=== PATIENT | female | born 2000 | race Caucasian/White ===

== ENCOUNTER 2021-10-12 23:24 | Outpatient (REF) | payer OTHER, SELFPAY ==
[2021-10-13 00:05] LABS: COVID-19 Test Negative (Negative)
== END 2021-10-12 23:25 | disposition home or self-care (01) ==
LOC: HO.LAB 23:24
PROVIDERS: Visit Provider Internal Medicine
DX: Z20.822 Contact with and (suspected) exposure to COVID-19 (principal)
CPT/HCPCS: 87635

== ENCOUNTER 2021-10-13 00:35 | Emergency (ER) | payer BC, SELFPAY ==
--- NOTE | ~2021-10-13 | XR_ITS ---
EXAMINATION: XR CHEST CLINICAL INFORMATION: Shortness of breath COMPARISON: 12/11/2017 TECHNIQUE: Frontal view of the chest was obtained. FINDINGS: Lung volumes are low. There is no focal consolidation, edema, or effusion. No pneumothorax. The cardiomediastinal silhouette is within normal limits. No acute osseous abnormality. XR/XR chest 1V IMPRESSION: No acute pulmonary finding.
[2021-10-13 00:44] VITALS: BP 123/86; PULSE 79; RESP 17; TEMP 36.8; O2SAT 98; BMI 30.9
--- NOTE | 2021-10-13 01:21 | ED.URI ---
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 Related Data Previous Rx's Medication Instructions Recorded levofloxacin 750 mg tablet 750 mg PO DAILY 7 Days #7 tab 10/13/21 Allergies Allergy/AdvReac Type Severity Reaction Status Date / Time acetaminophen [From TYLENOL] Allergy Intermediate RASH Unverified 04/17/20 19:29 Review of Systems Review of Systems: Yes all other systems are reviewed and are negative PMFSH Past Medical History Medical History Arnold-Chiari malformation, type I Social History Social History Advance Directives: No Patient : No Physical Exam Vital Signs: Vital Signs: Last Vital Signs Temp 98.2 F 10/13/21 00:44 Pulse 79 10/13/21 00:44 Resp 17 10/13/21 00:44 BP 123/86 10/13/21 00:44 Pulse Ox 98 10/13/21 00:44 BMI result Body Mass Index 30.9 Appearance: Alert. Oriented X3. No acute distress. Eyes: No pallor or icterus ENT: Pharynx normal. Oral Mucosa moist Neck: Normal inspection. Neck supple. CVS: Normal heart rate and rhythm. Pulses normal. Respiratory: No respiratory distress. Equal air entry bilateral, no wheezing/rales/rhonchi Abdomen: Soft and nontender. Bowel sounds are present, no mass palpable, no CVA tenderness Skin: Skin warm and dry. Normal skin color. Normal skin turgor. Extremities: No lower extremity edema. No calf tenderness Neuro: Oriented X 3. MDM - URI/Sore Throat MDM Narrative Medical decision making narrative: Patient's symptoms clinically likely early pneumonia chest x-ray showed slight haziness on the right lower lobe will discharge patient home on Levaquin low risk for PE Discharge Plan Discharge Clinical Impression: Pneumonia Patient Disposition: Home, Self-Care Instructions: Community Acquired Pneumonia (ED) Additional Instructions: you likely have early pneumonia on the right side Take antibiotics as prescribed Prescriptions: New levofloxacin 750 mg tablet 750 mg PO DAILY 7 Days Qty: 7 0RF
[2021-10-13] MEDS: levoFLOXacin 750 MG TABLET PO (01:43)
== END 2021-10-13 01:44 | disposition home or self-care (01) ==
PROVIDERS: Emergency Provider Internal Medicine
DX: J18.9 Pneumonia, unspecified organism (principal)
CPT/HCPCS: 71045; 99283

== ENCOUNTER 2022-01-26 00:48 | Outpatient (REF) | payer OTHER, SELFPAY ==
[2022-01-26 01:12] LABS: COVID-19 Test Negative (Negative)
== END 2022-01-26 00:49 | disposition home or self-care (01) ==
LOC: HO.LAB 00:48
PROVIDERS: Visit Provider Internal Medicine
DX: Z20.822 Contact with and (suspected) exposure to COVID-19 (principal)
CPT/HCPCS: 87635

== ENCOUNTER 2022-03-10 02:12 | Outpatient (REF) | payer OTHER, SELFPAY ==
[2022-03-10 02:37] LABS: COVID-19 Test Negative (Negative); IDNOW Serial# 16C4AD1C
== END 2022-03-10 02:13 | disposition home or self-care (01) ==
LOC: HO.LAB 02:12
PROVIDERS: Visit Provider Internal Medicine
DX: Z20.822 Contact with and (suspected) exposure to COVID-19 (principal)
CPT/HCPCS: 87635

== ENCOUNTER 2022-04-28 20:01 | Outpatient (REF) | payer OTHER, SELFPAY ==
[2022-04-28 20:43] LABS: COVID-19 Test Negative (Negative); IDNOW Serial# 55D5AD1C
== END 2022-04-28 20:02 | disposition home or self-care (01) ==
LOC: HO.LAB 20:01
PROVIDERS: Visit Provider Internal Medicine
DX: Z20.822 Contact with and (suspected) exposure to COVID-19 (principal)
CPT/HCPCS: 87635

== ENCOUNTER 2022-05-29 01:17 | Outpatient (REF) | payer OTHER, SELFPAY ==
[2022-05-29 01:34] LABS: COVID-19 Test Positive (Negative)
== END 2022-05-29 01:18 | disposition home or self-care (01) ==
LOC: HO.LAB 01:17
PROVIDERS: Visit Provider Internal Medicine
DX: Z20.822 Contact with and (suspected) exposure to COVID-19 (principal)
CPT/HCPCS: 87635

== ENCOUNTER 2022-07-17 12:43 | Emergency (ER) | payer BC, SELFPAY ==
[2022-07-17 12:48] VITALS: BP 132/97; PULSE 83; RESP 18; TEMP 36.7; O2SAT 98; BMI 27.3
--- NOTE | 2022-07-17 12:50 | ED_ITS ---
HPI - Allergic Reaction General Chief complaint: Allergic Reaction Stated complaint: allergic reaction Time Seen by Provider: 07/17/22 12:59 Source: patient Mode of arrival: ambulatory Limitations: no limitations History of Present Illness MD complaint: allergic reaction and hives Onset (ago): hour(s) (2 hours prior to arrive) Exposure: medication (Taking medication that has Tylenol properties in it) Symptoms: rash and itching Severity: mild Treatment prior to arrival: benadryl (50 mg) Previous Allergic Reaction History: prior ED visit(s) Related Data Previous Rx's Medication Instructions Recorded levofloxacin 750 mg tablet 750 mg PO DAILY 7 days #7 tabs 10/13/21 diphenhydramine HCl 25 mg capsule 50 mg PO TID PRN allergic reaction 07/17/22 (Benadryl) #20 caps epinephrine 0.3 mg/0.3 mL 0.3 mg (0.3 mL) IM Q10M PRN 07/17/22 injection, auto-injector anaphylaxis #2 ea famotidine 20 mg tablet (Pepcid) 20 mg PO BID rash #20 tabs 07/17/22 prednisone 20 mg tablet 40 mg PO DAILY rash 5 days #10 tabs 07/17/22 Allergies Allergy/AdvReac Type Severity Reaction Status Date / Time acetaminophen [From TYLENOL] Allergy Intermediate RASH Verified 07/17/22 12:47 Review of Systems Review of Systems: Constitutional : No Fever, No Chills , no body aches, no recent illness Head/Face: No facial swelling, No facial redness ENT/Mouth : No oral/throat swelling, No Hoarseness, No Swallowing Difficulty Eyes: No Eye Pain, No Swelling, No Redness Cardiovascular : No Chest Pain, No SOB, No palpitations Respiratory : No Cough, No Sputum, No Wheezing, No Smoke Exposure, No Dyspnea Gastrointestinal : No Nausea, No Vomiting, No Diarrhea, No abdominal Pain Genitourinary : No Dysuria, No Urinary Frequency, No Hematuria Musculoskeletal : No joint pain, No Myalgias, No Joint Swelling Skin : No Skin Lesions, positive rash Neuro : No Weakness, No Numbness, No Headache, No dizziness, No tingling Psych : No Anxiety/Panic, No Depression Heme/Lymph: No Bruising, No Lymphadenopathy Endocrine : No Polyuria, No Polydipsia Denies changes in lotions or detergents. + new medications Denies drainage from rash. Denies any recent sick contacts or recent travel. Yes all other systems are reviewed and are negative [facility] Past Medical History Attestation statement: The following information was validated with the patient. Source: old records reviewed and nursing notes reviewed Medical History Arnold-Chiari malformation, type I Social History Social History Advance Directives: No Advance Directives Information Provided: No Physical Exam ED Vital Signs: Vital Signs - 24 hr 07/17/22 12:48 Temperature 98.0 F Pulse Rate 83 Respiratory Rate 18 Blood Pressure 132/97 H Pulse Oximetry 98 Oxygen Delivery Method Room Air BMI result Body Mass Index 27.3 Vital signs have been reviewed and all within normal limits Appearance: Alert. Oriented X3. No acute distress. Head: Normal external exam. Normocephalic. No angioedema noted. Eyes: PERRLA. EOMI. Conjunctiva and sclera normal. Eyelids normal. ENT: Pharynx normal. Uvula midline. Moist mucous membranes. No trismus noted. No drooling noted. No muffled voice noted. Patient tolerated secretions well. Neck: Normal inspection. Neck supple. FROM. No adenopathy. No meningeal signs. CVS: Normal heart rate and rhythm. Heart sound normal. No murmurs noted. Pulses normal throughout. Respiratory: No respiratory distress. Painless inspiration. Breath sounds normal. No wheezes/rales/rhonchi noted. Chest nontender. No accessory muscle usage noted or decreased air movement noted. Abdomen: Soft and nontender. Nondistended. Back: Full range of motion noted. Skin: Skin warm and dry. Normal skin color. Normal skin turgor. Patient noted to have scattered hives to chest/arms and lower extremities. No additional rashes/lesions/lacerations noted. Extremities: Extremities exhibit normal range of motion. Extremities nontender. Neuro: Oriented X 3. No motor deficit. No sensory deficit. Reflexes normal. Normal steady gait. CN's II-XII intact bilaterally? Course Course Course Narrative: IMP/Plan: Allergic rxn. Not anaphylaxis. Not sepsis/ infectious etiology. Patient well appearing in no acute distress, breathing easily without throat symptoms. Speaking full sentences, and handling secretions without difficulty. There is no obvious threat to airway. Lungs are CTA in all contreras. No signs of angioedema, stridor, airway compromise, anaphylaxis or anaphylactic shock. Not c/w SSSS/ TEN/ Eryth multiforme/ [place]ons. Given HPI and PE -patient having a mild allergic reaction. She already took 50 mg of Benadryl prior to arrival. She does have some scattered hives throughout her body. Patient will be discharged with symptomatic treatment instructions return if any new or worsening symptoms follow up with primary care provider. Patient understands agrees with this plan. Discharge Plan Discharge Clinical Impression: Allergic reaction, Urticaria Patient Disposition: Home, Self-Care Instructions: General Allergic Reaction (ED) Prescriptions: New diphenhydramine HCl [Benadryl] 25 mg capsule 50 mg PO TID PRN (Reason: allergic reaction) Qty: 20 0RF famotidine [Pepcid] 20 mg tablet 20 mg PO BID Qty: 20 0RF prednisone 20 mg tablet 40 mg PO DAILY 5 Days Qty: 10 0RF epinephrine 0.3 mg/0.3 mL auto-injector 0.3 mg IM Q10M PRN (Reason: anaphylaxis) Qty: 2 0RF Rx Instructions: for 2 doses No Action levofloxacin 750 mg tablet 750 mg PO DAILY 7 Days Qty: 7 0RF Referrals: Smitha Lynch PA-C [Primary Care Provider] - 2 days Stand Alone Forms: Work/School Release
[2022-07-17] MEDS: predniSONE 20 MG TABLET 60 MG PO (13:14)
[2022-07-17] MEDS: Famotidine 20 MG TABLET PO (13:14)
== END 2022-07-17 13:20 | disposition home or self-care (01) ==
PROVIDERS: Emergency Provider Emergency Medicine; PCP Physician Assistant Medical
DX: L50.9 Urticaria, unspecified (principal); T78.40XA Allergy, unspecified, initial encounter; X58.XXXA Exposure to other specified factors, initial encounter
CPT/HCPCS: 99283

== ENCOUNTER 2022-07-20 01:57 | Emergency (ER) | payer BC, SELFPAY ==
[2022-07-20 02:05] VITALS: BP 134/88; PULSE 92; RESP 22; TEMP 36.5; O2SAT 98; BMI 25.0
[2022-07-20 02:40] LABS: Appearance Urine Clear; Color Urine Yellow; Glucose Urine UA Negative (Negative); Leukocyte Esterase Urine Negative (Negative); Nitrite Urine Negative (Negative); PH 5.5 (5.0-9.0); Specific Gravity - Urine 1.015 (1.005-1.025); Urine Blood Negative (Negative); Urine Ketones Negative (Negative); Urine Protein Negative (Neg-Trace)
[2022-07-20 02:44] LABS: UPreg QC Valid YES; Urine Pregnancy NEGATIVE (NEGATIVE)
[2022-07-20 03:17] LABS: Influenza A PCR NEGATIVE (Negative); Influenza B PCR NEGATIVE (Negative); Resp Syncy Virus RNA Qual PCR NEGATIVE (Negative); SARS COV2 PCR INHOUSE NEGATIVE (Negative)
--- NOTE | 2022-07-20 04:00 | ED_ITS ---
HPI - General Adult General Chief complaint: General Medical Stated complaint: allergic reaction Time Seen by Provider: 07/20/22 02:03 Source: patient Mode of arrival: ambulatory History of Present Illness HPI narrative: 21-year-old female presents from work with acute onset of feeling nauseous and then became very ?shaky? and states that she took her Benadryl 2 hours prior and denies taking any of her medication on empty stomach. Patient states that she was seen on 07/17 for an allergic reaction. At that time she was started on Benadryl as well as steroids. She denies any fever, chills, dizziness but has chronic headaches. Patient states that she did have hives on bilateral upper extremities. Related Data Home Medications Medication Instructions Recorded Confirmed amoxicillin 875 mg-potassium 1 tab PO BID 07/20/22 07/20/22 clavulanate 125 mg tablet benzonatate 100 mg capsule 1 cap PO TID 07/20/22 07/20/22 bupropion HCl 300 mg 24 hr tablet, 1 tab PO DAILY 07/20/22 07/20/22 extended release Previous Rx's Medication Instructions Recorded levofloxacin 750 mg tablet 750 mg PO DAILY 7 days #7 tabs 10/13/21 diphenhydramine HCl 25 mg capsule 50 mg PO TID PRN allergic reaction 07/17/22 (Benadryl) #20 caps epinephrine 0.3 mg/0.3 mL 0.3 mg (0.3 mL) IM Q10M PRN 07/17/22 injection, auto-injector anaphylaxis #2 ea prednisone 20 mg tablet 40 mg PO DAILY rash 5 days #10 tabs 07/17/22 Allergies Allergy/AdvReac Type Severity Reaction Status Date / Time acetaminophen [From TYLENOL] Allergy Intermediate RASH Verified 07/17/22 12:47 Review of Systems Review of Systems: Pertinent positives and negatives as stated in HPI 10 point review of systems. [facility] Past Medical History Source: nursing notes reviewed Medical History Arnold-Chiari malformation, type I Social History Social History Advance Directives: No Physical Exam ED Vital Signs: Vital Signs - 24 hr 07/20/22 02:05 Temperature 97.7 F Pulse Rate 92 Respiratory Rate 22 H Blood Pressure 134/88 Pulse Oximetry 98 Oxygen Delivery Method Room Air BMI result Body Mass Index 25.0 VITAL SIGNS: Reviewed. GENERAL: Well developed, well nourished, in no acute distress. HEAD: Normocephalic/atraumatic EYES: PERRLA, EOMI EARS: Ext canals without abnormality, TMs non-bulging and non-erythematous NOSE: Nares patent bilateral OROPHARYNX: no oral lesions noted, posterior pharynx clear and non-erythematous without noted tonsillar enlargement/erythema/exudates NECK: Supple, no adenopathy LUNGS: Normal breath sounds. No adventitious sounds or accessory muscle use. SpO2<98> CARDIOVASCULAR: Regular rate and rhythm without noted murmurs ABDOMEN: Soft, non-tender, non-distended with bowel sounds. MUSCULOSKELETAL: No tenderness, deformities, or effusions noted on gross inspection. EXTREMITIES: No cyanosis, clubbing or edema. SKIN: Inspection of the skin reveals no rashes NEUROLOGIC: Alert and oriented x 4. Strength and sensation to light touch were grossly intact x 4. Course Course Course Narrative: 21-year-old female with history and clinical presentation consistent with steroid side effects after review of urinalysis is negative for acute infection, and viral testing is negative. There are no focal deficits, patient is afebrile, not tachypneic or tachycardic and there are no clinical signs of angioedema or anaphylaxis. I discussed the symptoms with the patient at bedside and instructed her to stop taking the steroids as I felt like this may be contributing to the way that she is feeling. I also advised that she could manage the hives with Benadryl. Medical Decision Making Lab Data Labs: Lab Results 07/20/22 07/20/22 07/20/22 Range/Units 02:27 02:27 02:27 Urine Color Yellow Urine Appearance Clear Urine pH 5.5 (5.0-9.0) Ur Specific [place] 1.015 (1.005-1.025) Urine Protein Negative (Neg-Trace) mg/dL Urine Glucose (UA) Negative (Negative) mg/dL Urine Ketones Negative (Negative) mg/dL Urine Blood Negative (Negative) Urine Nitrite Negative (Negative) Ur Leukocyte Esterase Negative (Negative) Urine Test NEGATIVE (NEGATIVE) Influenza Type A (PCR) NEGATIVE (Negative) Influenza Type B (PCR) NEGATIVE (Negative) RSV RNA Qual (PCR) NEGATIVE (Negative) SARS-CoV-2 RNA (RT-PCR) NEGATIVE (Negative) Discharge Plan Discharge Clinical Impression: Medication side effect Patient Disposition: Home, Self-Care Instructions: Adverse Drug Reaction (ED) Additional Instructions: Stop taking prednisone. Please follow-up with Dr. Lynch by calling the office in the morning to set up an appointment for re-evaluation further outpatient management. Take Benadryl for any additional hives. Return to the ER for worsening symptoms. Prescriptions: No Action benzonatate 100 mg capsule 1 cap PO TID amoxicillin-pot clavulanate 875-125 mg tablet 1 tab PO BID bupropion HCl 300 mg tablet extended release 24 hr 1 tab PO DAILY levofloxacin 750 mg tablet 750 mg PO DAILY 7 Days Qty: 7 0RF diphenhydramine HCl [Benadryl] 25 mg capsule 50 mg PO TID PRN (Reason: allergic reaction) Qty: 20 0RF prednisone 20 mg tablet 40 mg PO DAILY 5 Days Qty: 10 0RF epinephrine 0.3 mg/0.3 mL auto-injector 0.3 mg IM Q10M PRN (Reason: anaphylaxis) Qty: 2 0RF Rx Instructions: for 2 doses Referrals: Smitha Lynch PA-C [Primary Care Provider] - Stand Alone Forms: Work/School Release
--- NOTE | 2022-07-20 04:07 | PC.NURSE ---
Discharge instructions reviewed with pt. Pt verbalizes understanding.
== END 2022-07-20 04:07 | disposition home or self-care (01) ==
PROVIDERS: Emergency Provider Student in an Organized Health Care Education/Training Program; PCP Physician Assistant Medical
DX: R11.0 Nausea (principal); T38.0X5A Adverse effect of glucocorticoids and synthetic analogues, initial encounter; Y92.009 Unspecified place in unspecified non-institutional (private) residence as the place of occurrence of the external cause; Z20.822 Contact with and (suspected) exposure to COVID-19
CPT/HCPCS: 0241U; 81003; 81025; 99283

== ENCOUNTER 2022-12-04 10:59 | Emergency (ER) | payer BC, SELFPAY ==
--- NOTE | ~2022-12-04 | XR_ITS ---
EXAMINATION: Left foot and left ankle. CLINICAL INDICATION: Twisted ankle. TECHNIQUE: Left foot 3 views. Left ankle 2 views. FINDINGS: LEFT ANKLE: There is a nondisplaced fracture tip of lateral malleolus with moderate lateral malleolar soft tissue swelling. The ankle mortise and subtalar joints are normal. LEFT FOOT: There is small bone fragment dorsal to the navicular bone likely old injury. There is no soft tissue edema seen in the foot. No acute fracture or dislocation. XR/XR ankle LT min 3V IMPRESSION: Nondisplaced fracture tip of lateral malleolus with moderate lateral malleolar soft tissue swelling. Old fracture fragment dorsal navicular bone without any soft tissue swelling.
--- NOTE | ~2022-12-04 | XR_ITS ---
EXAMINATION: Left foot and left ankle. CLINICAL INDICATION: Twisted ankle. TECHNIQUE: Left foot 3 views. Left ankle 2 views. FINDINGS: LEFT ANKLE: There is a nondisplaced fracture tip of lateral malleolus with moderate lateral malleolar soft tissue swelling. The ankle mortise and subtalar joints are normal. LEFT FOOT: There is small bone fragment dorsal to the navicular bone likely old injury. There is no soft tissue edema seen in the foot. No acute fracture or dislocation. XR/XR foot LT min 3V IMPRESSION: Nondisplaced fracture tip of lateral malleolus with moderate lateral malleolar soft tissue swelling. Old fracture fragment dorsal navicular bone without any soft tissue swelling.
[2022-12-04 11:14] VITALS: BP 144/89; PULSE 79; RESP 16; TEMP 36.7; O2SAT 100; BMI 29.1
--- NOTE | 2022-12-04 11:14 | ED.LOWEXIN ---
HPI - Extremity Injury (Lower) General Chief Complaint: Extremity Injury, Lower <RAUL Wetzel Last Filed: 12/04/22 11:18> Stated Complaint: L ankle inj 12/03/22 <RAUL Wetzel Last Filed: 12/04/22 11:18> Time Seen by Provider: 12/04/22 11:33 <RAUL Wetzel Last Filed: 12/04/22 11:18> Source: patient <RAUL Ronquillo Last Filed: 12/04/22 14:02> Mode of arrival: ambulatory <RAUL Ronquillo Last Filed: 12/04/22 14:02> Limitations: no limitations <RAUL Ronquillo Last Filed: 12/04/22 14:02> History of Present Illness HPI Narrative: Patient is a 22 year old assigned female at with no reported medical history presenting to the emergency department today with left ankle pain. Patient states that last night she tripped her left ankle while walking on uneven pavement and she continues to have pain. Patient denies hitting her head in the incident. Patient denies any loss of consciousness from the incident. Patient denies any dizziness, lightheadedness, abdominal pain, nausea, vomiting, fever, chills, blurry vision, double vision, loss of vision, chest pain, difficulty breathing, shortness of breath, back pain, night sweats, pain with urination, increased urinary frequency, increased urinary urgency, blood in her urine or stool, syncope or a near syncopal episode, bowel incontinence, bladder incontinence, bowel retention, bladder retention, or any other complaints at this time. <RAUL Ronquillo Last Filed: 12/04/22 14:02> MD complaint: ankle injury <RAUL Ronquillo Last Filed: 12/04/22 14:02> Onset (ago): day(s) (1) <RAUL Ronquillo Last Filed: 12/04/22 14:02> Severity: mild <RAUL Ronquillo Last Filed: 12/04/22 14:02> Severity scale (1-10): 3 <RAUL Ronquillo Last Filed: 12/04/22 14:02> Other symptoms: none <RAUL Ronquillo Last Filed: 12/04/22 14:02> Related Data Home Medications: Home Medications Medication Instructions Recorded Confirmed amoxicillin 875 mg-potassium 1 tab PO BID 07/20/22 07/20/22 clavulanate 125 mg tablet benzonatate 100 mg capsule 1 cap PO TID 07/20/22 07/20/22 bupropion HCl 300 mg 24 hr tablet, 1 tab PO DAILY 07/20/22 07/20/22 extended release Previous Rx's Medication Instructions Recorded levofloxacin 750 mg tablet 750 mg PO DAILY 7 days #7 tabs 10/13/21 diphenhydramine HCl 25 mg capsule 50 mg PO TID PRN allergic reaction 07/17/22 (Benadryl) #20 caps epinephrine 0.3 mg/0.3 mL 0.3 mg (0.3 mL) IM Q10M PRN 07/17/22 injection, auto-injector anaphylaxis #2 ea prednisone 20 mg tablet 40 mg PO DAILY rash 5 days #10 tabs 07/17/22 <RAUL Wetzel Last Filed: 12/04/22 11:18> Allergies/Adverse Reactions: Allergies Allergy/AdvReac Type Severity Reaction Status Date / Time acetaminophen [From TYLENOL] Allergy Intermediate RASH Verified 12/04/22 11:16 <RAUL Wetzel Last Filed: 12/04/22 11:18> Review of Systems Constitutional: Constitutional: Reports no additional constitutional complaints, Denies chills, Denies fever(s) and Denies night sweats <RAUL Ronquillo Last Filed: 12/04/22 14:02> Eyes: Eyes: Reports no additional eye complaints, Denies blurry vision, Denies change in vision, Denies diplopia, Denies eye discharge, Denies loss of vision and Denies eye pain <RAUL Ronquillo Last Filed: 12/04/22 14:02> ENT: Denies dizziness <RAUL Ronquillo Last Filed: 12/04/22 14:02> Cardiovascular: Cardiovascular: Reports no additional cardiovascular complaints, Denies chest pain, Denies lightheadedness, Denies Loss of Consciousness and Denies dyspnea <RAUL Ronquillo Last Filed: 12/04/22 14:02> Respiratory: Respiratory: Reports no additional respiratory complaints and Denies dyspnea <RAUL Ronquillo - Last Filed: 12/04/22 14:02> Gastrointestinal: Gastrointestinal: Reports no additional gastrointestinal complaints, Denies abdominal pain, Denies melena, Denies hematochezia, Denies change in bowel habits and Denies change in stool character <RAUL Ronquillo - Last Filed: 12/04/22 14:02> Genitourinary: Genitourinary: Denies hematuria, Denies urinary frequency, Denies dysuria, Denies urinary incontinence, Denies urinary hesitancy and Denies urinary urgency <RAUL Ronquillo - Last Filed: 12/04/22 14:02> Musculoskeletal: Musculoskeletal: Reports no additional musculoskeletal complaints, Denies numbness and Denies tingling <RAUL Ronquillo - Last Filed: 12/04/22 14:02> Comments: left ankle pain <RAUL Ronquillo - Last Filed: 12/04/22 14:02> Neurologic: Denies dizziness, Denies loss of vision, Denies numbness and Denies tingling <RAUL Ronquillo - Last Filed: 12/04/22 14:02> Psychiatric: Psychiatric: Reports no additional psychiatric complaints <RAUL Ronquillo - Last Filed: 12/04/22 14:02> Endocrine: Endocrine: Reports no additional endocrine complaints <RAUL Ronquillo - Last Filed: 12/04/22 14:02> Hematologic/Lymphatic: Hematologic/Lymphatic: Reports no additional hematologic/lymphatic complaints <RAUL Ronquillo - Last Filed: 12/04/22 14:02> Allergic/Immunologic: Allergic/Immunologic: Reports no additional allergic/immunologic complaints <RAUL Ronquillo - Last Filed: 12/04/22 14:02> PMF Past Medical History Attestation statement: The following information was validated with the patient. <RAUL Ronquillo - Last Filed: 12/04/22 14:02> Source: old records reviewed and nursing notes reviewed <RAUL Ronquillo - Last Filed: 12/04/22 14:02> Medical History: Medical History Arnold-Chiari malformation, type I <RAUL Wetzel - Last Filed: 12/04/22 11:18> Social History Social History: Social History Advance Directives: No Advance Directives Information Provided: Yes <RAUL Wetzel - Last Filed: 12/04/22 11:18> Physical Exam Vital Signs: Vital Signs: Last Vital Signs Temp 98.1 F 12/04/22 11:14 Pulse 79 12/04/22 11:14 Resp 16 12/04/22 11:14 BP 144/89 H 12/04/22 11:14 Pulse Ox 100 12/04/22 11:14 O2 Del Method Room Air 12/04/22 11:14 BMI result Body Mass Index 29.1 <RAUL Wetzel - Last Filed: 12/04/22 11:18> Vital Signs: Last Vital Signs Temp 98.1 F 12/04/22 11:14 Pulse 79 12/04/22 11:14 Resp 16 12/04/22 11:14 BP 144/89 H 12/04/22 11:14 Pulse Ox 100 12/04/22 11:14 O2 Del Method Room Air 12/04/22 11:14 BMI result Body Mass Index 29.1 <RAUL Ronquillo - Last Filed: 12/04/22 14:02> Const: General: cooperative, no acute distress, alert and awake <RAUL Ronquillo Last Filed: 12/04/22 14:02> Nutritional Appearance: well nourished <RAUL Ronuqillo Last Filed: 12/04/22 14:02> Orientation/consciousness: patient oriented x3 <RAUL Ronquillo - Last Filed: 12/04/22 14:02> Limitations: no limitations <RAUL Ronquillo Last Filed: 12/04/22 14:02> HEENT: Head: Yes normal to inspection and Yes atraumatic <RAUL Ronquillo Last Filed: 12/04/22 14:02> Ears: hearing grossly normal bilaterally and external ears normal <RAUL Ronquillo Last Filed: 12/04/22 14:02> General nose exam: Normal external nose present, no nasal discharge noted and no epistaxis <RAUL Ronquillo Last Filed: 12/04/22 14:02> Face and sinus: Yes normal facial exam, No abrasion and No laceration <Teresa Case PA - Last Filed: 12/04/22 14:02> Mouth: Normal oral and palatal mucosa present, no drooling and no muffled voice <Teresa Case PA - Last Filed: 12/04/22 14:02> Eyes: General: appearance normal, both eyes and all related structures <Teresa Solisnereyda PA - Last Filed: 12/04/22 14:02> Periorbital: periorbital findings normal <Teresa Case PA - Last Filed: 12/04/22 14:02> Eyelids: Yes eyelids normal <Teresa Case PA - Last Filed: 12/04/22 14:02> Conjunctivae: conjunctivae normal <Teresa Case PA - Last Filed: 12/04/22 14:02> Pupils: Equal, round and reactive pupils present <Teresa Case PA - Last Filed: 12/04/22 14:02> EOM: EOMs intact bilaterally <Teresa Case PA - Last Filed: 12/04/22 14:02> Neck: Neck: Yes normal visual inspection, Yes full ROM and Yes no lymphadenopathy <Teresa Solisnereyda PA - Last Filed: 12/04/22 14:02> Chest: Chest palpation & inspection: normal inspection of the chest <Teresa Solisnereyda PA - Last Filed: 12/04/22 14:02> Resp: Effort & Inspection: normal respiratory effort and able to speak in complete sentences <Teresa Solisnereyda PA - Last Filed: 12/04/22 14:02> GI: Inspection: Yes normal to inspection <Teresa Solisnereyda PA - Last Filed: 12/04/22 14:02> Neuro: General: patient oriented x3 and moves all extremities <Teresa Solisnereyda PA - Last Filed: 12/04/22 14:02> Cranial nerves: Yes Equal, round and reactive pupils present <Teresa Solisnereyda PA - Last Filed: 12/04/22 14:02> Cognition (Neuro): normal cognition <Teresa Evie PA - Last Filed: 12/04/22 14:02> Motor exam (neuro): 5/5 motor strength present throughout <RAUL Ronquillo - Last Filed: 12/04/22 14:02> Sensory Exam: Normal double simultaneous stimulation for sensation <RAUL Ronquillo - Last Filed: 12/04/22 14:02> Coordination: [id number] test normal <RAUL Ronquillo - Last Filed: 12/04/22 14:02> Extrem: Other: minimal swelling and pain with ROM of the left ankle <RAUL Ronquillo - Last Filed: 12/04/22 14:02> General: Yes full ROM and Yes capillary refill normal <RAUL Ronquillo - Last Filed: 12/04/22 14:02> Psych: Appearance: grossly normal <RAUL Ronquillo - Last Filed: 12/04/22 14:02> Mental Status: mental status grossly normal <RAUL Ronquillo - Last Filed: 12/04/22 14:02> Affect: normal affect <RAUL Ronquillo - Last Filed: 12/04/22 14:02> Attitude: cooperative <RAUL Ronquillo - Last Filed: 12/04/22 14:02> Thought process: Normal thought process present <RAUL Ronquillo - Last Filed: 12/04/22 14:02> Thought content: Normal thought content present <RAUL Ronquillo - Last Filed: 12/04/22 14:02> Insight: Good insight present (Psych) <RAUL Ronquillo - Last Filed: 12/04/22 14:02> Course Course Course Narrative: RME--22yo F w/PMHx prior ankle surgery c/o L ankle pain s/p twisting injury last night. +L lateral mall ttp w/mild swelling. NV intact XRs ordered Full HPI, ROS and PE to be performed by primary ED provider. <RAUL Wetzel - Last Filed: 12/04/22 11:18> Medical Decision Making Medical Decision Making MDM Narrative: Patient is a 22 year old assigned female at with no reported medical history presenting to the emergency department today with left ankle pain. Patient's physical exam showed minimal left ankle swelling with pain to palpation but otherwise unremarkable. Patient's left ankle and foot x-rays showed nondisplaced fracture tip of the lateral malleolus with moderate lateral malleolar soft tissue swelling. I explained my physical exam findings as well as all test results to the patient. I answered all questions asked by the patient. Patient's left ankle was placed in a posterior leg splint with stirrups, without incident. Patient's PMS was in tact prior to and after splint placement. Patient was given crutches with crutch instructions. I stressed the importance of the patient taking her medication as prescribed. I stressed the importance of the patient following up with her primary care provider and an orthopedic provider. I stressed the importance of the patient returning to the emergency department immediately if her symptoms were to worsen or if she were to develop any dizziness, shortness of breath, difficulty breathing, chest pain, blurry vision, loss of vision, nausea, vomiting, abdominal pain, fever, chills, back pain, or any other complaints. Patient verbalized agreement and understanding with this treatment plan and discharge. <RAUL Ronquillo Last Filed: 12/04/22 14:02> Differential Diagnosis Differential Diagnoses: The differential diagnosis associated with the presentation includes <RAUL Ronquillo Last Filed: 12/04/22 14:02> ankle pain, ankle fracture <RAUL Ronquillo Last Filed: 12/04/22 14:02> Independent Interpretation I performed an independent interpretation of an: Plain X-Ray <RAUL Ronquillo - Last Filed: 12/04/22 14:02> Interpretation: My interpretation is in agreement with the radiologist's impression of these imaging studies. EXAMINATION: Left foot and left ankle. CLINICAL INDICATION: Twisted ankle. TECHNIQUE: Left foot 3 views. Left ankle 2 views. FINDINGS: LEFT ANKLE: There is a nondisplaced fracture tip of lateral malleolus with moderate lateral malleolar soft tissue swelling. The ankle mortise and subtalar joints are normal. LEFT FOOT: There is small bone fragment dorsal to the navicular bone likely old injury. There is no soft tissue edema seen in the foot. No acute fracture or dislocation. XR/XR foot LT min 3V IMPRESSION: Nondisplaced fracture tip of lateral malleolus with moderate lateral malleolar soft tissue swelling. ? Old fracture fragment dorsal navicular bone without any soft tissue swelling. Dictated By: Graeme Avalos MD Signed By: Electronically signed by Graeme Avalos MD 12/04/22 1205 <RAUL Ronquillo - Last Filed: 12/04/22 14:02> Procedures Orthopedic Splinting/Casting Injury #1: Side: left <RAUL Ronquillo - Last Filed: 12/04/22 14:02> Lower Extremity Injury Location: ankle <RAUL Ronquillo - Last Filed: 12/04/22 14:02> Lower Extremity Immobilizer: posterior splint and stirrup splint <RAUL Ronquillo - Last Filed: 12/04/22 14:02> Other Orthopedic Equipment: crutches <RAUL Ronquillo - Last Filed: 12/04/22 14:02> Discharge Plan Discharge Clinical Impression: Ankle fracture <RAUL Wetzel - Last Filed: 12/04/22 11:18> Patient Disposition: Home, Self-Care <RAUL Wetzel - Last Filed: 12/04/22 11:18> Instructions: Ankle Fracture (DC) <RAUL Wetzel - Last Filed: 12/04/22 11:18> Additional Instructions: Follow up with your primary care provider and an orthopedic provider. Return to the emergency department immediately if your symptoms worsen or if you develop any dizziness, shortness of breath, difficulty breathing, chest pain, blurry vision, loss of vision, nausea, vomiting, abdominal pain, fever, chills, back pain, or any other complaints. <RAUL Wetzel - Last Filed: 12/04/22 11:18> Prescriptions: No Action benzonatate 100 mg capsule 1 cap PO TID amoxicillin-pot clavulanate 875-125 mg tablet 1 tab PO BID bupropion HCl 300 mg tablet extended release 24 hr 1 tab PO DAILY levofloxacin 750 mg tablet 750 mg PO DAILY 7 Days Qty: 7 0RF diphenhydramine HCl [Benadryl] 25 mg capsule 50 mg PO TID PRN (Reason: allergic reaction) Qty: 20 0RF prednisone 20 mg tablet 40 mg PO DAILY 5 Days Qty: 10 0RF epinephrine 0.3 mg/0.3 mL auto-injector 0.3 mg IM Q10M PRN (Reason: anaphylaxis) Qty: 2 0RF Rx Instructions: for 2 doses <RAUL Wetzel - Last Filed: 12/04/22 11:18> Referrals: [facility] [Provider Group] (Call to establish and follow up with an orthopedic provider. ) Smitha Lynch PA-C [Primary Care Provider] - <RAUL Wetzel - Last Filed: 12/04/22 11:18> Stand Alone Forms: Work/School Release <RAUL Wetzel - Last Filed: 12/04/22 11:18> Interventions: ED Discharge Assessment Last Done: 12/04/22 12:35 <RAUL Wetzel - Last Filed: 12/04/22 11:18> Discharge Date/Time: 12/04/22 12:36 <RAUL Wetzel - Last Filed: 12/04/22 11:18> Print Language: Latvian <RAUL Wetzel - Last Filed: 12/04/22 11:18>
--- NOTE | 2022-12-04 12:28 | PC.NURSE ---
posterior short leg and stirrup splint applied to left ankle well tolerated by pt
== END 2022-12-04 12:36 | disposition home or self-care (01) ==
PROVIDERS: Emergency Provider Emergency Medicine; PCP Physician Assistant Medical
DX: S82.65XA Nondisplaced fracture of lateral malleolus of left fibula, initial encounter for closed fracture (principal); X50.1XXA Overexertion from prolonged static or awkward postures, initial encounter; Y93.01 Activity, walking, marching and hiking; Y92.480 Sidewalk as the place of occurrence of the external cause; Y99.9 Unspecified external cause status
CPT/HCPCS: 29515; 73610; 73630; 99282; 99283